=== PATIENT | male | born 1945 | race Caucasian/White ===

== ENCOUNTER 2017-03-21 08:24 | Emergency (ER) | payer MEDICARE ==
[~2017-03-21] VITALS: Ht 172.7 cm; Wt 140.9 kg
[~2017-03-21 08:24] MED LIST: ALBU1AER INH; ALLO100 PO; ASPI81TA82 PO; ATOR40TA16 PO; CHOL1CHW5 CHEW; COUM5TAB PO; DILT180C56 PO; DYAZ PO; FINA5TAB2 PO; FURO1TAB93 PO; GABA100C4 PO; GLIM4TAB PO; KCL20 PO; LEVEMIR SQ; NOVOLOGP2 SQ; QUIN5TAB6 PO; SPIR25TA PO; TAMS0.4C4 PO; WARF7.5 PO; Z.0.OXYGENDME NC
[2017-03-21 08:33] VITALS: BP 145/62; PULSE 66; RESP 16; TEMP 98.1; O2SAT 95
--- NOTE | 2017-03-21 08:45 | PD ---
HPI Chief Complaint: Skin Problem Time Seen by Provider: 08:37 Travel History International Travel<30 days: No Contact w/Intl Traveler<30days: No Traveled to known affect area: No History of Present Illness HPI This patient complains of redness and pain and swelling in his left lower leg. Duration 2 days. Severity is moderate. No injury or fever or drainage. He has pain in the calf. No history of DVT. He does take Coumadin for history of A. fib does not know his current INR. No alleviating factors. He is diabetic and often not well controlled per his report PFSH Past Medical History Hx Anticoagulant Therapy: Yes (coumadin) Arthritis: Yes Asthma: Yes (CHILDHOOD) Atrial Fibrillation: Yes Blood Disorders: No Heart Rhythm Problems: Yes (S/P CARDIOVERTED 10-15 YRS AGO) Cancer: No Cardiac Catheterization: Yes Cardiovascular Problems: Yes (afib) High Cholesterol: Yes COPD: Yes Diabetes: Yes Endocrine: Yes Gastrointestinal Disorders: No Genitourinary: No Hypertension: Yes Immune Disorder: No Implanted Vascular Access Dvce: No Musculoskeletal: Yes Neurologic: No Psychiatric: No Reproductive: No Respiratory: Yes (copd) Sleep Apnea: Yes (C-PAP) Past Surgical History Abdominal Surgery: Yes (MANJU) Cholecystectomy: Yes Genitourinary Surgery: Yes (VASECTOMY) Other Surgery: Yes (GALLBLADDER,ARTHROSCOPIC LEFT KNEE) Social History Alcohol Use: No Tobacco Use: No Substance Use: No Allergies-Medications (Allergen,Severity, Reaction): Coded Allergies: Iodine (Verified Allergy, Severe, 03/21/17) Penicillin (Verified Allergy, Severe, 03/21/17) Reported Meds & Prescriptions Reported Meds & Active Scripts Active Reported Potassium Chloride ER (Potassium Chloride) 10 Meq Cap 10 Meq PO DAILY Spironolactone 50 Mg Tab 50 Mg PO DAILY Finasteride 5 Mg Tab 5 Mg PO DAILY Do not crush. Tamsulosin (Tamsulosin HCl) 0.4 Mg Cap 0.4 Mg PO HS Novolog Inj (Insulin Aspart) 1,000 Unit/10 Ml Vial 0 SQ DIRECTED Sliding Scale as directed. Levemir Inj (Insulin Detemir) 1,000 unit/ 10 ML Vial 20 Units SQ DAILY Do not mix with any other Insulin. Atorvastatin (Atorvastatin Calcium) 40 Mg Tab 40 Mg PO HS Spironolactone 25 Mg Tab 25 Mg PO BIDPC Review of Systems General / Constitutional: No: Fever Eyes: No: Visual changes HENT: No: Headaches Cardiovascular: Positive: Edema, No: Chest Pain or Discomfort Respiratory: No: Shortness of Breath Gastrointestinal: No: Abdominal Pain Genitourinary: No: Dysuria Musculoskeletal: Positive: Edema, Pain Skin: Positive Change in Pigmentation, No Rash Neurologic: No: Weakness Psychiatric: No: Depression Endocrine: No: Polydipsia Hematologic/Lymphatic: No: Easy Bruising Physical Exam Narrative GENERAL: Well-nourished, well-developed patient in no apparent distress. SKIN: Focused skin assessment reveals no rash and nodules. Skin is Warm and dry. HEAD: Atraumatic. Normocephalic. EYES: Pupils equal and round. No scleral icterus. No injection or drainage. ENT: No nasal bleeding or discharge. Mucous membranes pink and moist. NECK: Trachea midline. No JVD. CARDIOVASCULAR: Regular rate and rhythm. No murmur appreciated. RESPIRATORY: No accessory muscle use. Clear to auscultation. Breath sounds equal bilaterally. GASTROINTESTINAL: Abdomen soft, obese, non-tender, nondistended. Hepatic and splenic margins not palpable. MUSCULOSKELETAL: No obvious deformities. No clubbing. No cyanosis. Left lower leg has erythema and warmth in a band around the mid lower leg. There is calf tenderness. There is some mild symmetric edema in both lower legs NEUROLOGICAL: Awake and alert. No obvious cranial nerve deficits. Motor grossly within normal limits. Normal speech. PSYCHIATRIC: Appropriate mood and affect; insight and judgment normal. Data Data Last Documented VS Vital Signs Date Time Temp Pulse Resp B/P Pulse Ox O2 Delivery O2 Flow Rate FiO2 03/21/17 08:45 18 03/21/17 08:33 98.1 66 145/62 95 Orders Complete Blood Count With Diff (03/21/17 08:42) Basic Metabolic Panel (Bmp) (03/21/17 08:42) Prothrombin Time / Inr (Pt) (03/21/17 08:42) Iv Access Insert/Monitor (03/21/17 08:42) Us Leg Venous Doppler (03/21/17 ) Labs Laboratory Tests Test 03/21/17 08:50 White Blood Count 15.2 TH/MM3 Red Blood Count 3.80 MIL/MM3 Hemoglobin 11.9 GM/DL Hematocrit 35.9 % Mean Corpuscular Volume 94.5 FL Mean Corpuscular Hemoglobin 31.3 PG Mean Corpuscular Hemoglobin 33.1 % Concent Red Cell Distribution Width 14.4 % Platelet Count 188 TH/MM3 Mean Platelet Volume 8.0 FL Neutrophils (%) (Auto) 82.1 % Lymphocytes (%) (Auto) 6.6 % Monocytes (%) (Auto) 9.1 % Eosinophils (%) (Auto) 0.9 % Basophils (%) (Auto) 1.3 % Neutrophils # (Auto) 12.5 TH/MM3 Lymphocytes # (Auto) 1.0 TH/MM3 Monocytes # (Auto) 1.4 TH/MM3 Eosinophils # (Auto) 0.1 TH/MM3 Basophils # (Auto) 0.2 TH/MM3 CBC Comment AUTO DIFF Differential Comment AUTO DIFF CONFIRMED Prothrombin Time 29.7 SEC Prothromb Time International 2.6 RATIO Ratio Sodium Level 141 MEQ/L Potassium Level 4.0 MEQ/L Chloride Level 109 MEQ/L Carbon Dioxide Level 24.8 MEQ/L Anion Gap 7 MEQ/L Blood Urea Nitrogen 34 MG/DL Creatinine 1.50 MG/DL Estimat Glomerular Filtration 46 ML/MIN Rate Random Glucose 117 MG/DL Calcium Level 8.4 MG/DL [facility] Medical Decision Making Medical Screen Exam Complete: Yes Emergency Medical Condition: Yes Medical Record Reviewed: Yes Differential Diagnosis DVT, cellulitis, abscess Narrative Course I have reviewed the patient's electronic medical record. Reviewed his prior lab draws. 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 Med/Other Pt SpecificInfo: Prescription(s) given Scripts Doxycycline Hyclate 100 Mg [id number] Mg PO BID #14 CAP Ref 0 Prov:Dalton Ramsey MD 03/21/17 Sulfamethoxazole-Trimethoprim (Bactrim DS)800-160 Mg Tab1 Tab PO BID #14 TAB Ref 0 Prov:Dalton Ramsey MD 03/21/17 Disposition: 01 DISCHARGE HOME Condition: Stable Dalton Ramsey MD Mar 21, 2017 08:45
[2017-03-21 08:56] LABS: AUTOMATED NEUTROPHIL # 12.5 TH/MM3 (1.8-7.7); BASOPHIL # 0.2 TH/MM3 (0-0.2); BASOPHIL % 1.3 % (0.0-2.0); EOSINOPHIL # 0.1 TH/MM3 (0-0.4); EOSINOPHIL % 0.9 % (0.0-4.0); HEMATOCRIT 35.9 % (39.0-51.0); LYMPH % 6.6 % (9.0-44.0); MEAN CELL VOLUME 94.5 FL (80.0-100.0); MEAN CORPUSCULAR HEMOGLOBIN 31.3 PG (27.0-34.0); MEAN CORPUSCULAR HGB CONC 33.1 % (32.0-36.0); MONO % 9.1 % (0.0-8.0); NEUT % 82.1 % (16.0-70.0); PLATELET COUNT 188 TH/MM3 (150-450); RED CELL DISTRIBUTION WIDTH 14.4 % (11.6-17.2); WHITE BLOOD COUNT 15.2 TH/MM3 (4.0-11.0)
[2017-03-21] MEDS ORDERED: SPIR50TA PO (08:57)
[2017-03-21] MEDS ORDERED: POTA10CA PO (08:57)
[2017-03-21 09:01] LABS: HEMO FLAGS AUTO DIFF
[2017-03-21 09:11] LABS: INTERNATIONAL NORMALIZED RATIO 2.6 RATIO; PROTHROMBIN TIME - PATIENT 29.7 SEC (9.8-11.6)
[2017-03-21 09:12] LABS: BICARBONATE 24.8 MEQ/L (21.0-32.0)
[2017-03-21 09:19] LABS: SCAN/DIFF AUTO DIFF CONFIRMED
--- NOTE | 2017-03-21 09:48 | RADRPT ---
EXAM DATE/TIME: 03/21/2017 09:29 [facility] COMPARISON: No previous studies available for comparison. INDICATIONS : Left leg redness and pain. MEDICAL HISTORY : Afib. Hypercholesterol. Hypertension. COPD. SURGICAL HISTORY : Cholecystectomy. Cardiac catheterization. Left knee arthroscopy. ENCOUNTER: Initial ACUITY: 1 day PAIN SCORE: 6/10 LOCATION: Left leg. TECHNIQUE: Venous ultrasound of the leg was performed from the inguinal ligament to the proximal calf. Real-yudith e, color Doppler and spectral tracing, compression and augmentation techniques were used. FINDINGS: There is normal compressibility of the deep venous system from the inguinal region to the proximal ca lf. No echogenic clot is seen in the lumen of the common femoral, femoral, popliteal, and posterior tibial veins. There is a normal response of the venous system to proximal and distal augmentation an d respiration. CONCLUSION: Normal examination. Shirin Johns MD on March 21, 2017 at 9:46 Board Certified Radiologist. This report was verified electronically.
[2017-03-21] MEDS ORDERED: BACT800T5 PO (10:02)
[2017-03-21] MEDS ORDERED: DOXY100C PO (10:02)
[2017-03-21 10:11] VITALS: BP 188/66
== END 2017-03-21 10:18 | disposition home or self-care (01) ==
LOC: PHED 08:24
DX: L03.116 Cellulitis of left lower limb (principal); E11.22 Type 2 diabetes mellitus with diabetic chronic kidney disease; N28.9 Disorder of kidney and ureter, unspecified; D72.829 Elevated white blood cell count, unspecified; I10 Essential (primary) hypertension; E78.00 Pure hypercholesterolemia, unspecified; G47.30 Sleep apnea, unspecified; Z79.01 Long term (current) use of anticoagulants; Z79.4 Long term (current) use of insulin; Z87.39 Personal history of other diseases of the musculoskeletal system and connective tissue; Z87.09 Personal history of other diseases of the respiratory system; Z86.79 Personal history of other diseases of the circulatory system
CPT/HCPCS: 80048; 85025; 85610; 93971; 99284

== ENCOUNTER 2017-06-03 21:10 | Emergency (ER) | payer MEDICARE ==
[~2017-06-03] VITALS: Ht 157.5 cm; Wt 142.0 kg
[~2017-06-03 21:10] MED LIST changes: -ALBU1AER INH; -ALLO100 PO; -ASPI81TA82 PO; +BACT800T5 PO; -CHOL1CHW5 CHEW; -COUM5TAB PO; -DILT180C56 PO; +DOXY100C PO; -DYAZ PO; -FURO1TAB93 PO; -GABA100C4 PO; -GLIM4TAB PO; -KCL20 PO; +POTA10CA PO; -QUIN5TAB6 PO; +SPIR50TA PO; -WARF7.5 PO; -Z.0.OXYGENDME NC
[2017-06-03 21:17] VITALS: BP 180/79; PULSE 76; RESP 18; TEMP 97.9; O2SAT 97
[2017-06-03] MEDS ORDERED: HUMALOG SQ ×2 (21:49)
--- NOTE | 2017-06-03 21:52 | PD ---
HPI Chief Complaint: Diabetic Time Seen by Provider: 21:37 Travel History International Travel<30 days: No Contact w/Intl Traveler<30days: No Traveled to known affect area: No History of Present Illness HPI 72-year-old male with history of insulin dependent diabetes here for evaluation of possible left leg infection. The patient reported noticing a small blisterlike area about a week ago. He applied a dressing at that time which he removed today. Today he began to experience pain in this region. He is on Coumadin for history of A. fib. No history of DVT or PE. Pain is moderate, constant, worse with movement and palpation. He denies fevers or chills. No trauma. Chart review shows that the patient had cellulitis of the left lower extremity in March of this year and was seen in the emergency department and discharged home with oral antibiotics. He states he followed up in the [place] wound clinic with resolution. PFSH Past Medical History Hx Anticoagulant Therapy: Yes Arthritis: Yes Asthma: Yes (CHILDHOOD) Atrial Fibrillation: Yes Blood Disorders: No Heart Rhythm Problems: Yes (S/P CARDIOVERTED 10-15 YRS AGO) Cancer: No Cardiac Catheterization: Yes Cardiovascular Problems: Yes High Cholesterol: Yes COPD: Yes Diabetes: Yes Diminished Hearing: No Endocrine: Yes Gastrointestinal Disorders: No Genitourinary: No Hypertension: Yes Immune Disorder: No Implanted Vascular Access Dvce: No Musculoskeletal: Yes Neurologic: No Psychiatric: No Reproductive: No Respiratory: Yes Sleep Apnea: Yes (C-PAP) Past Surgical History Abdominal Surgery: Yes (MANJU) Cholecystectomy: Yes Genitourinary Surgery: Yes (VASECTOMY) Other Surgery: Yes (GALLBLADDER,ARTHROSCOPIC LEFT KNEE) Social History Alcohol Use: No Tobacco Use: No Substance Use: No Allergies-Medications (Allergen,Severity, Reaction): Coded Allergies: iodine (Unverified Allergy, Severe, 06/03/17) penicillin G (Unverified Allergy, Severe, 06/03/17) potassium iodide (Unverified Allergy, Severe, 06/03/17) povidone-iodine (Unverified Allergy, Severe, 06/03/17) shrimp (Verified Allergy, Severe, 06/03/17) sodium iodide (Unverified Allergy, Severe, 06/03/17) sodium iodide (Unverified Allergy, Severe, 06/03/17) Reported Meds & Prescriptions Reported Meds & Active Scripts Active Reported Finasteride 5 Mg Tab 5 Mg PO DAILY Do not crush. Vitamin D3 (Cholecalciferol) 1,000 Unit Tab 2,000 Units PO DAILY Aspirin Children's (Aspirin) 81 Mg Chew 81 Mg CHEW DAILY Warfarin 1 Mg Tab 1.5 Mg PO TUESDAY Warfarin 5 Mg Tab 5 Mg PO TUE- Allopurinol 300 Mg Tab 300 Mg PO DAILY Quinapril (Quinapril HCl) 5 Mg Tab 5 Mg PO DAILY Furosemide 40 Mg Tab 40 Mg PO DAILY Diltiazem CD 24 HR 120 Mg Caper 120 Mg PO BID Gabapentin 100 Mg Cap 100 Mg PO BID Glimepiride 4 Mg Tab 4 Mg PO BIDAC Humalog Inj (Insulin Human Lispro) 1,000 Unit/10 Ml Vial 5-25 Units SQ ACHS Max dose at bedtime:( )units; sugars < 70,(0)units; sugars 150-199,(5)units; sugars 200-249,(10)units; sugars 250-299,(15)units; sugars 300-349,(20)units; sugars more than 349,(25)units. Potassium Chloride ER (Potassium Chloride) 10 Meq Cap 10 Meq PO DAILY Finasteride 5 Mg Tab 5 Mg PO DAILY Do not crush. Tamsulosin (Tamsulosin HCl) 0.4 Mg Cap 0.4 Mg PO HS Novolog Inj (Insulin Aspart) 1,000 Unit/10 Ml Vial 0 SQ DIRECTED Sliding Scale as directed. Atorvastatin (Atorvastatin Calcium) 40 Mg Tab 40 Mg PO HS Spironolactone 25 Mg Tab 25 Mg PO BIDPC Review of Systems Except as stated in HPI: all other systems reviewed are Neg Physical Exam Narrative GENERAL: Well-developed, well-nourished, overweight, comfortable, no apparent distress. SKIN: Focused skin assessment warm/dry. Left mid/anterior/medial leg with oval- shaped area of very superficial ulceration 7 cm x 4 cm with mild serous weeping with small amount of surrounding warmth and erythema, no red streaks, no induration, no purulence, no crepitus. HEAD: Atraumatic. Normocephalic. EYES: Pupils equal and round. No scleral icterus. No injection or drainage. ENT: Mucous membranes pink and moist. NECK: Trachea midline. No JVD. CARDIOVASCULAR: Regular rate and rhythm. Bilateral dorsalis pedis pulses are brisk and equal. RESPIRATORY: No accessory muscle use. Clear to auscultation. Breath sounds equal bilaterally. GASTROINTESTINAL: Abdomen soft, non-tender, nondistended. MUSCULOSKELETAL: Skin exam as above. Bilateral calves are supple. NEUROLOGICAL: Awake and alert. No obvious cranial nerve deficits. Motor grossly within normal limits. Normal speech. PSYCHIATRIC: Appropriate mood and affect; insight and judgment normal. Data Data Last Documented VS Vital Signs Date Time Temp Pulse Resp B/P (MAP) Pulse Ox O2 Delivery O2 Flow Rate FiO2 06/03/17 21:17 97.9 76 18 180/79 (112) 97 Orders Orders Blood Glucose (06/03/17 21:43) Tibia/Fibula (Ap/Lat) (06/03/17 ) Silver Sulfadi 1% Crm (400 Gm) (Silvaden (06/03/17 23:00) Wound Care (06/03/17 22:46) Sulfamet-Trimeth Ds 800-160 Mg (Bactrim (06/03/17 23:00) Cephalexin (Keflex) (06/03/17 23:00) MDM Medical Decision Making Medical Screen Exam Complete: Yes Emergency Medical Condition: Yes Differential Diagnosis Cellulitis, skin ulceration, necrotizing fasciitis unlikely, osteomyelitis unlikely, Narrative Course Vitals show heart rate 76, BP 180/79, pulse ox 97% on RA, oral temp of 97.9 F Left tib/fib xray: CONCLUSION: 1. No acute fracture, dislocation or radiopaque foreign body. 2. 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 3. Plantar and Achilles calcaneal spurs. Patient has a very superficial ulceration to his left medial/mid/anterior leg with slight surrounding cellulitis. There is no crepitus on exam. No signs of lymphangitis. Bilateral dorsalis pedis pulses are brisk and equal. Blood sugar is 90. At this point my plan is to start the patient on oral antibiotics and topical Silvadene. He was seen in the wound care clinic before, and was instructed to contact them on Tuesday. He was informed on when to return to the emergency department. He verbalizes understanding and agreement with plan. Diagnosis Primary Impression: Cellulitis of left leg Referrals: Primary Care Physician 3 days Additional Instructions: Follow-up in the [place] [facility] wound care clinic on Tuesday. Perform dressing changes daily. Taking the buttocks as prescribed. Return to the emergency department for worsening symptoms or any other concerns. Scripts Silver Sulfadiazine Topical (Silvadene Topical) 1 % Cream 1 APPLIC TOPICAL DIRECTED for Wound Management, #400 GM 0 Refills Prov: Jose Castaneda MD 06/03/17 Hydrocodone-Acetaminophen (Lortab) 5-325 Mg Tab 1 TAB PO Q6H Y for PAIN, #12 TAB 0 Refills Prov: Jose Castaneda MD 06/03/17 Cephalexin (Keflex) 500 Mg Cap 500 MG PO Q8H for Infection, #30 CAP 0 Refills Prov: Jose Castaneda MD 06/03/17 Sulfamethoxazole-Trimethoprim (Bactrim DS) 800-160 Mg Tab 1 TAB PO BID for Infection, #20 TAB 0 Refills Prov: Jose Castaneda MD 06/03/17 Disposition: 01 DISCHARGE HOME Condition: Stable Jose Castaneda MD Jun 03, 2017 21:52
[2017-06-03] MEDS ORDERED: ALLO300T2 PO (21:58)
[2017-06-03] MEDS ORDERED: ASPI81CH7 CHEW (21:58)
[2017-06-03] MEDS ORDERED: FINA5TAB2 PO (21:58)
[2017-06-03] MEDS ORDERED: QUIN5TAB6 PO (21:58)
[2017-06-03] MEDS ORDERED: WARF4TAB52 PO (21:58)
[2017-06-03] MEDS ORDERED: GLIM4TAB PO (21:58)
[2017-06-03] MEDS ORDERED: WARF-23 PO (21:58)
[2017-06-03] MEDS ORDERED: VITA100064 PO (21:58)
[2017-06-03] MEDS ORDERED: FURO40TA PO (21:58)
[2017-06-03] MEDS ORDERED: DILT-60 PO (21:58)
[2017-06-03] MEDS ORDERED: GABA100C4 PO (21:58)
--- NOTE | 2017-06-03 22:40 | RADRPT ---
EXAM DATE/TIME: 06/03/2017 22:10 [facility] COMPARISON: No previous studies available for comparison. INDICATIONS : Left distal tibia/fibula pain with redness. No known injury. MEDICAL HISTORY : A-Fib. Hypercholesterol. Hypertension. COPD. SURGICAL HISTORY : Cholecystectomy. Cardiac catheterization. Left knee arthroscopy ENCOUNTER: Initial ACUITY: 1 week PAIN SCORE: 5/10 LOCATION: Left distal tibia/fibula FINDINGS: No acute fracture or dislocation of the tibia or fibula is noted. no radiopaque foreign body is note d. Moderate degenerative changes are noted involving the femoral tibial and patellofemoral joints. P lantar and Achilles calcaneal spurs are noted. CONCLUSION: 1. No acute fracture, dislocation or radiopaque foreign body. 2. 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 3. Plantar and Achilles calcaneal spurs. Pipo Kaba MD on June 03, 2017 at 22:25 Board Certified Radiologist. This report was verified electronically.
[2017-06-03 22:55] VITALS: BP 182/71; PULSE 87; RESP 18; O2SAT 97
[2017-06-03] MEDS ORDERED: CEPH-460 PO (22:55)
[2017-06-03] MEDS ORDERED: SILV1CRE20 TOPICAL (22:55)
[2017-06-03] MEDS ORDERED: BACT800T5 PO (22:55)
[2017-06-03] MEDS ORDERED: HYDR-3533 PO (22:55)
[2017-06-03] MEDS ORDERED: SILVER SULFADIAZINE 1% CR 400 GM JAR TOPICAL ONE (23:00)
[2017-06-03] MEDS ORDERED: SILVER SULFADIAZINE 1% CR 50 GM JAR TOPICAL ONE (23:00)
[2017-06-03] MEDS ORDERED: CEPHALEXIN MONOHYDRATE 500 MG CAP PO ONE (23:00)
[2017-06-03] MEDS ORDERED: SULFAMETHOXAZOLE-TRIMETHOPRIM DS 800-160 MG TAB PO ONE (23:00)
== END 2017-06-03 23:28 | disposition home or self-care (01) ==
LOC: PHED 21:10
DX: L03.116 Cellulitis of left lower limb (principal); E11.9 Type 2 diabetes mellitus without complications; E78.00 Pure hypercholesterolemia, unspecified; I10 Essential (primary) hypertension; I48.91 Unspecified atrial fibrillation; J44.9 Chronic obstructive pulmonary disease, unspecified; Z79.01 Long term (current) use of anticoagulants; Z79.4 Long term (current) use of insulin; Z86.718 Personal history of other venous thrombosis and embolism; Z90.49 Acquired absence of other specified parts of digestive tract; Z88.0 Allergy status to penicillin
CPT/HCPCS: 16000; 73590